=== PATIENT | male | born 1985 | race Caucasian/White ===

== ENCOUNTER 2020-01-14 18:52 | Emergency (ER) | payer BC, MEDICAID ==
[~2020-01-14] VITALS: Ht 188 cm; Wt 110.9 kg
[~2020-01-14 18:52] MED LIST: HYDR-4383 PO; HYDR1TAB PO; IBUP-1984 PO; IBUP-1986 PO; NO HOME MEDS
[2020-01-14] MEDS ORDERED: HYDROcodone/acetaminophen 5mg/325mg tablet PO ONE (20:35)
[2020-01-14] MEDS ORDERED: ondansetron 4mg rapidly disintigrating tab PO ONE (20:35)
[2020-01-14] MEDS ORDERED: ONDA4TAB6 PO (20:45)
[2020-01-14] MEDS ORDERED: HYDR-4383 PO (20:45)
[2020-01-14 21:10] VITALS: BP 146/105
== END 2020-01-14 21:13 | disposition home or self-care (01) ==
LOC: ER 18:53
DX: S93.402A Sprain of unspecified ligament of left ankle, initial encounter (principal); F12.90 Cannabis use, unspecified, uncomplicated; Z72.89 Other problems related to lifestyle; Z98.890 Other specified postprocedural states; Z79.899 Other long term (current) drug therapy; X50.1XXA Overexertion from prolonged static or awkward postures, initial encounter; Y93.89 Activity, other specified; Y92.89 Other specified places as the place of occurrence of the external cause; Y99.8 Other external cause status
CPT/HCPCS: 73610; 99283